=== PATIENT | female | born 1965 | race Caucasian/White ===

== ENCOUNTER 2023-03-12 15:08 | Outpatient (CLI) | payer OTHER, SELFPAY | END 2023-03-12 15:09 | disposition home or self-care (01) | PROVIDERS: PCP Family Medicine; Visit Provider Family Medicine | DX: E03.9 Hypothyroidism, unspecified (principal); Z13.220 Encounter for screening for lipoid disorders; Z11.59 Encounter for screening for other viral diseases | CPT/HCPCS: 80053; 80061; 84443; 86803 ==

== ENCOUNTER 2024-03-28 13:57 | Outpatient (CLI) | payer OTHER, SELFPAY | END 2024-03-28 13:58 | disposition home or self-care (01) | PROVIDERS: PCP Family Medicine; Visit Provider Family Medicine | DX: Z00.00 Encounter for general adult medical examination without abnormal findings (principal); E03.9 Hypothyroidism, unspecified; I10 Essential (primary) hypertension; R63.5 Abnormal weight gain; K76.0 Fatty (change of) liver, not elsewhere classified; F41.9 Anxiety disorder, unspecified; Z13.6 Encounter for screening for cardiovascular disorders; Z13.1 Encounter for screening for diabetes mellitus | CPT/HCPCS: 80053; 80061; 82043; 82570; 84443 ==